=== PATIENT | male | born 1955 | race African-American/Black ===

== ENCOUNTER 2018-03-29 19:36 | Emergency (ER) | payer OTHER, MEDICAID ==
[~2018-03-29] VITALS: Ht 185.4 cm; Wt 82.0 kg
[2018-03-29 19:38] VITALS: BP 148/86
[2018-03-29] MEDS ORDERED: SODIUM CHLORIDE 0.9% 1,000 ML IV ONE (20:30)
== END 2018-03-29 20:40 | disposition left against medical advice (07) ==
LOC: ER 19:36
DX: R55 Syncope and collapse (principal); I11.0 Hypertensive heart disease with heart failure; I50.9 Heart failure, unspecified; F17.200 Nicotine dependence, unspecified, uncomplicated; Z95.5 Presence of coronary angioplasty implant and graft
CPT/HCPCS: 99283; J7030